=== PATIENT | female | born 1990 | race Caucasian/White ===

== ENCOUNTER 2017-08-02 13:00 | Emergency (ER) | payer BC ==
[2017-08-02 13:35] LABS: #Lymphocytes 1.8 thou/uL (1.20-3.40); #Monocytes 0.5 thou/uL (0.11-0.59); #Neutrophils 4.8 thou/uL (1.40-6.50); %Basophils 0.4 % (0.0-1.0); %Eosinophils 0.1 % (0.0-10.0); %Lymphocytes 24.9 % (21.0-51.0); %Monocytes 6.6 % (0.0-10.0); Hemoglobin 10.6 g/dL (12.0-16.0); Mean Corpuscular HGB CONC 31.9 g/dL (32.0-36.0); Mean Corpuscular Hemoglobin 22.1 pg (27.0-31.0); Mean Corpuscular Volume 69.5 fl (81.0-99.0); Mean Platelet Volume 8.8 fL (7.4-10.4); Platelet Count 261 thou/uL (130-400); RBC Distribution Width 13.8 % (11.5-14.5); Red Blood Cell (RBC) Count 4.79 mill/uL (4.20-5.40)
[2017-08-02] MEDS ORDERED: Misoprostol 200 MCG TAB PO SCH (15:15)
--- NOTE | 2017-08-02 15:19 | ULT ---
PELVIC ULTRASOUND: Date: 08/02/17 COMPARISON: None. HISTORY: Vaginal bleeding, 26-year-old female who reports current . TECHNIQUE: Multiplanar Douglas scale sonographic imaging of the pelvis is provided with abdominal and endovaginal i maging. Ovaries are assessed with color flow and spectral analysis. FINDINGS: The uterus measures 10.4 x 6.4 x 7.0 cm. The endometrial stripe appears thickened and heterogeneous, with relative increased echogenicity, measuring at least 1.8 cm in transverse dimension. There is tra ce free fluid in the pelvic cul-de-sac. There is fluid in the endocervical canal. No intrauterine gestation is seen. Right ovary measures 2.4 x 2.0 x 1.7 cm. Left ovary measures 3.0 x 1.8 x 1.4 cm. No adnexal or ovarian mass identified. Both ovaries demonstrate blood flow. IMPRESSION: Thickened, heterogeneously echogenic endometrium. No intrauterine gestational sac seen. Assuming posi tive test, findings suggest spontaneous . Sonographically occult ectopic is a possibility as well. Correlation with quantitative beta HCG at this time and in 48 hours is esse ntial. Fluid echogenicity within the endocervical canal could represent a malpositioned gestational s ac secondary to in progress or could simply represent fluid trapped within the endocervical canal. POS: ENZO
--- NOTE | 2017-08-02 15:28 | PDOC.EVN ---
Event Note - Event Note Event Note: ER CONCULT in Bed 5 Reason for eval: Ob (8 weeks) vag bleed PLEASE SEE FULL HANDWRITTEN PROGRESS NOTE FOR CONSULT CC: vag bleed HPI Patient here (daughter of Dr Nava with Orth) here for OB VB. She is a 26 yo s/p SVDs x 3 with passage of clots since 0300. I was called to talk with her. No LOC, no SOB, no dizziness. Review of Systems: Complete ROS done and as per HPI Past Med: Neg All: none Surgical: none Physical: VSS afebrile patient seen and examined at bedside No active VB now RH Pos BHCG 5000 Sono with no IUP, no masses A/P: incomplete AB. Ok for vaginal cytotec per [facility]COG. F/U wednesday with [facility] at 0830 (Light). I have called and scheduled the appoitment for her. I have answered her questions. No acute need for D&C at this time.
[2017-08-02] MEDS ORDERED: Misoprostol 200 MCG TAB VAG SCH (15:30)
[2017-08-03 21:58] LABS: Chlamydia by PCR Not Detected (NotDetected); GC by PCR Not Detected (NotDetected)
== END 2017-08-02 15:52 | disposition home or self-care (01) ==
LOC: ERS 13:00
DX: O03.9 Complete or unspecified spontaneous abortion without complication (principal)
CPT/HCPCS: 36415; 76856; 84702; 85025; 86900; 86901; 87480; 87491; 87510; 87591; 87660